=== PATIENT | male | born 1970 | race Caucasian/White ===

== ENCOUNTER 2022-04-13 09:06 | Emergency (ER) | payer MEDICAID ==
[2022-04-13 09:18] VITALS: BP 128/83; PULSE 111
[2022-04-13] MEDS ORDERED: Acetaminophen/HYDROcodone 325-10 MG Tab PO ONE (09:40)
[2022-04-13] MEDS ORDERED: Amoxicillin/Clavulanate K 875-125 MG Tab PO ONE (09:46)
== END 2022-04-13 10:08 | disposition home or self-care (01) ==
LOC: KA.ED 09:06
DX: K04.7 Periapical abscess without sinus (principal); Z79.899 Other long term (current) drug therapy
CPT/HCPCS: 99282; A9270; 99283

== ENCOUNTER 2022-04-20 00:30 | Emergency (ER) | payer MEDICAID ==
[2022-04-20 00:58] VITALS: BP 130/82; PULSE 87
[2022-04-20] MEDS: Ketorolac 30 MG/ML SDV IM ONE (01:12)
[2022-04-20] MEDS: Sodium Chloride 0.9% 10 ML Syringe FLUSH PRN (01:19)
[2022-04-20] MEDS: Morphine 2 MG/ML SYRINGE IVPUSH ONE (01:25)
[2022-04-20 01:49] LABS: ANION GAP 8.6 mmol/L (5-15)
[2022-04-20] MEDS: Iopamidol 755 Mg/ML 75 ML Bottle IVPUSH ONE (02:07)
[2022-04-20] MEDS: Sodium Chloride 0.9% 50 ML IV SCH (02:07)
== END 2022-04-20 03:04 | disposition home or self-care (01) ==
LOC: KA.ED 00:30
DX: K04.7 Periapical abscess without sinus (principal); Z72.821 Inadequate sleep hygiene
CPT/HCPCS: 36415; 70487; 80048; 85025; 96372; 96374; 99282; J1885; J2270; J3490; Q9967

== ENCOUNTER 2022-06-23 10:33 | Emergency (ER) | payer MEDICAID ==
[2022-06-23 10:40] VITALS: BP 139/69; PULSE 73
== END 2022-06-23 11:25 | disposition home or self-care (01) ==
LOC: KA.ED 10:33
DX: K04.7 Periapical abscess without sinus (principal); K02.9 Dental caries, unspecified
CPT/HCPCS: 99283

== ENCOUNTER 2022-10-30 10:48 | Emergency (ER) | payer BC, MEDICAID ==
[2022-10-30 10:56] VITALS: BP 133/86; PULSE 95
[2022-10-30] MEDS: Ketorolac 30 MG/ML SDV IM ONE (11:39)
[2022-10-30] MEDS: Acetaminophen/HYDROcodone 325-5 MG Tab PO ONE (11:40)
[2022-10-30] MEDS: Amoxicillin 500 MG Cap PO ONE (11:41)
== END 2022-10-30 12:05 | disposition home or self-care (01) ==
LOC: KA.ED 10:48
DX: S02.5XXA Fracture of tooth (traumatic), initial encounter for closed fracture (principal); Z72.0 Tobacco use
CPT/HCPCS: 96372; 99283; A9270-GY; J1885

== ENCOUNTER 2023-04-06 14:24 | Emergency (ER) | payer BC, MEDICAID, OTHER ==
[2023-04-06 14:50] VITALS: BP 124/89; PULSE 83
[2023-04-06] MEDS ORDERED: Acetaminophen/HYDROcodone 325-5 MG Tab PO ONE (15:56)
== END 2023-04-06 16:09 | disposition home or self-care (01) ==
LOC: KA.ED 14:24
DX: S22.31XA Fracture of one rib, right side, initial encounter for closed fracture (principal); F17.210 Nicotine dependence, cigarettes, uncomplicated; W20.8XXA Other cause of strike by thrown, projected or falling object, initial encounter; Y92.69 Other specified industrial and construction area as the place of occurrence of the external cause
CPT/HCPCS: 71101-RT; 99283; A9270-GY

== ENCOUNTER 2024-09-09 12:17 | Emergency (ER) | payer BC, MEDICAID ==
[2024-09-09] MEDS: Lidocaine/Epineph/Tetracaine 3 ML Syringe TOP ONE ×2 (12:32→12:42)
[2024-09-09] MEDS: HYDROmorphone 1 MG/ML Syringe IM ONE (12:33)
[2024-09-09] MEDS: Diphtheria,Pertussis(Acell),Tetanus Vaccine 0.5 ML Syringe IM ONE (12:44)
[2024-09-09] MEDS ORDERED: Bacitracin/Neomycin/Polymyxin B Oint 0.9 GM U/D Packet TOP ONE (13:28)
[2024-09-09 13:56] VITALS: BP 116/79; PULSE 80
== END 2024-09-09 13:42 | disposition home or self-care (01) ==
LOC: KA.ED 12:17
DX: S01.81XA Laceration without foreign body of other part of head, initial encounter (principal); S09.90XA Unspecified injury of head, initial encounter; F17.200 Nicotine dependence, unspecified, uncomplicated; Z79.899 Other long term (current) drug therapy; Z23 Encounter for immunization; W26.8XXA Contact with other sharp object(s), not elsewhere classified, initial encounter
CPT/HCPCS: 12053; 90471; 90715; 96372; 99282-25; A9270-GY; J1171